=== PATIENT | female | born 1975 | race Caucasian/White ===

== ENCOUNTER 2017-07-24 14:21 | Emergency (ER) | payer BC ==
[2017-07-24 15:09] VITALS: BP 134/65
--- NOTE | 2017-07-24 16:04 | UC ---
Lower Extremity/Ankle HPI - HPI Summary HPI Summary: Patient was walking in high heels and fell twisting her ankle and hurting the left great toe, she is having a hard time walking, gets sharp pains from the foot to the toe, mild swelling noted - History of Current Complaint Chief Complaint: UCLowerExtremity Stated Complaint: LEFT BIG TOE Time Seen by Provider: 07/24/17 15:48 Hx Obtained From: Patient Hx Last Menstrual Period: 07/06/17 ?: No Onset/Duration: Sudden Onset, Lasting Days Severity Initially: Severe Severity Currently: Severe Aggravating Factor(s): Standing, Ambulation Alleviating Factor(s): Rest Able to Bear Weight: Yes - but severe pain - Allergies/Home Medications Home Medications: Home Medications Omeprazole CAP* [Prilosec CAP* 20 MG] 20 mg PO BEDTIME 07/24/17 [History Confirmed 07/24/17] Venlafaxine EXT RELEASE CAP* [Effexor Xr CAP*] 75 mg PO BEDTIME 07/24/17 [ History Confirmed 07/24/17] PMH/Surg Hx/FS Hx/Imm Hx Previously Healthy: Yes - Surgical History Surgical History: Yes Surgery Procedure, Year, and Place: CHOLECYSTECTOMY - Family History Known Family History: Positive: Hypertension - Social History Alcohol Use: Rare Substance Use Type: None Smoking Status (MU): Former Smoker When Did the Patient Quit Smoking/Using Tobacco: 2011 Review of Systems Constitutional: Negative Skin: Negative Eyes: Negative ENT: Negative Respiratory: Negative Cardiovascular: Negative Gastrointestinal: Negative Genitourinary: Negative Motor: Negative Neurovascular: Negative Musculoskeletal: Arthralgia, Decreased ROM, Myalgia Neurological: Negative Psychological: Negative Is Patient Immunocompromised?: No All Other Systems Reviewed And Are Negative: Yes Physical Exam Triage Information Reviewed: Yes Appearance: Well-Appearing, Pain Distress, Obese Vital Signs: Initial Vital Signs Temp 97.9 F 07/24/17 15:02 Pulse 87 07/24/17 15:02 Resp 16 07/24/17 15:02 BP 134/65 07/24/17 15:02 Vital Signs Reviewed: Yes Eye Exam: Normal ENT Exam: Normal Dental Exam: Normal Neck exam: Normal Respiratory Exam: Normal Respiratory: Positive: Chest non-tender, Lungs clear, Normal breath sounds Cardiovascular Exam: Normal Cardiovascular: Positive: RRR, No Murmur, Pulses Normal Abdominal Exam: Normal Abdomen Description: Positive: Nontender, No Organomegaly, Soft Bowel Sounds: Positive: Present Musculoskeletal Exam: Normal Musculoskeletal: Positive: Strength Limited @ - in left foot, ROM Limited @ - in left foot and ankle, Edema @ - around the lateral ankle, and left great toe Neurological Exam: Normal Psychological Exam: Normal Skin Exam: Normal Lower Extremity Course/Dx - Course Course Of Treatment: hx obtained, exam performed, meds reviewed, xray obtained, neg for fracture - Differential Dx/Diagnosis Differential Diagnosis/HQI/PQRI: Contusion, Dislocation, Fracture (Closed), Sprain, Strain Provider Diagnoses: left great toe sprain Discharge - Discharge Plan Condition: Stable Disposition: HOME Patient Education Materials: Arthralgia (ED) Referrals: Mateo Burciaga PA [Primary Care Provider] - Scotty Bassett MD [Medical Doctor] - Additional Instructions: 1. warm water soaks 1-2 times a day 2. ibuprofen for pain and swelling 3. use the post op shoe for support 3. FOllow up with Dr Bassett no improvment in a week.
--- NOTE | 2017-07-24 16:23 | RAD ---
INDICATION: Left foot injury COMPARISON: None TECHNIQUE: AP, lateral, and oblique views were obtained. FINDINGS: The bony structures, joint spaces, and soft tissues are normal for age. IMPRESSION: NEGATIVE EXAMINATION.
== END 2017-07-24 16:40 | disposition home or self-care (01) ==
LOC: UCCORT 14:21
DX: S93.502A Unspecified sprain of left great toe, initial encounter (principal); X50.1XXA Overexertion from prolonged static or awkward postures, initial encounter; Y93.01 Activity, walking, marching and hiking; Z87.891 Personal history of nicotine dependence
CPT/HCPCS: 99212; G0463